=== PATIENT | male | born 1975 | race Two or more races ===

== ENCOUNTER 2020-09-18 10:34 | Emergency (ER) | payer MEDICAID, OTHER ==
[~2020-09-18] VITALS: Ht 162.6 cm; Wt 62.1 kg
[2020-09-18 11:35] LABS: Urine WBC None Seen /hpf (0 - 3)
[2020-09-18 11:57] LABS: Basophils # (auto) 0.1 10 ^3/uL (0-0.2); Basophils % (auto) 0.6 % (0.0-2.0); Eosinophils # (auto) 0 10 ^3/uL (0-0.8); Eosinophils % (auto) 0.2 % (0.0-7.0); Hematocrit 48.5 % (41.0-53.0); Hemoglobin 16.6 g/dL (13.5-17.5); Lymphocytes # (auto) 1.8 10 ^3/uL (0.4-5.4); Lymphocytes % (auto) 15.2 % (10.0-50.0); Mean Corpuscular Hemoglobin 30.3 pg (28.0-32.0); Mean Corpuscular Hgb Conc. 34.3 g/dL (32.0-36.0); Mean Corpuscular Volume 88.3 fL (80.0-100.0); Monocytes # (auto) 0.7 10 ^3/uL (0-1.3); Monocytes % (auto) 6.4 % (0.0-12.0); Neutrophils % (auto) 77.6 % (37.0-80.0); Nucleated Red Blood Cells % 0.1 %; Platelet Count (auto) 367 10^3/uL (140-450); White Blood Cell 11.6 10^3/uL (4.4-10.8)
[2020-09-18 11:59] LABS: Urine Bacteria NONE SEEN /hpf (None Seen); Urine Blood Negative /uL (Negative); Urine Specific Gravity 1.008 (1.001-1.035)
[2020-09-18 12:04] LABS: Calcium 9.1 mg/dL (8.5-10.1); Magnesium 2.6 mg/dL (1.6-2.6); Potassium 4.1 mmol/L (3.5-5.1)
[2020-09-18 12:07] LABS: BUN/Creatinine Ratio 12.2; Bilirubin, Total 0.4 mg/dL (0.2-1.0); Total Protein 7.6 g/dL (6.4-8.2)
[2020-09-18 13:16] LABS: Alcohol, Urine < 3.0 mg/dL (0-10); Amphetamine Screen, Urine NEGATIVE (NEGATIVE); Barbiturate Scree,Urine NEGATIVE (NEGATIVE); Benzodiazephine Screen, Urine NEGATIVE (NEGATIVE); Cannabinoid Screen, Urine POSITIVE (NEGATIVE); Cocaine Screen, Urine NEGATIVE (NEGATIVE); Opiate Scree,Urine NEGATIVE (NEGATIVE)
[2020-09-18 13:18] LABS: INR 1.03 (0.9-1.15); Partial Thromboplastin Time 30.2 sec (23.0-31.2)
[2020-09-18 13:23] LABS: Phencyclidine Screen, Urine NEGATIVE (NEGATIVE)
[2020-09-18 13:30] VITALS: BP 143/91
== END 2020-09-18 14:38 | disposition home or self-care (01) ==
LOC: ER 10:34
DX: N30.00 Acute cystitis without hematuria (principal); F17.210 Nicotine dependence, cigarettes, uncomplicated
CPT/HCPCS: 36415; 71045; 74176; 80053; 80307; 81001; 83690; 83735; 85025; 85610; 85730

== ENCOUNTER 2022-04-03 12:37 | Emergency (ER) | payer MEDICAID ==
[~2022-04-03] VITALS: Ht 162.6 cm; Wt 72.7 kg
[2022-04-03 13:57] VITALS: BP 133/85
[2022-04-03] MEDS ORDERED: TOBR0.3S EACHEYE (14:18)
[2022-04-03] MEDS ORDERED: ALBU108A5 IN (14:18)
== END 2022-04-03 14:27 | disposition home or self-care (01) ==
LOC: ER 12:38
DX: H10.33 Unspecified acute conjunctivitis, bilateral (principal); J45.909 Unspecified asthma, uncomplicated; F17.210 Nicotine dependence, cigarettes, uncomplicated; Z76.0 Encounter for issue of repeat prescription; Z59.00 Homelessness unspecified; Z79.899 Other long term (current) drug therapy